=== PATIENT | female | born 1965 | race Caucasian/White ===

== ENCOUNTER 2018-04-06 13:39 | Emergency (ER) | payer BC, OTHER ==
--- NOTE | 2018-04-06 14:16 | ERPHSYRPT ---
- History of Present Illness Time Seen by Provider: 04/06/18 14:16 Source: patient, other ([facility]) Exam Limitations: no limitations Physician History: The patient is a 52-year-old female who has been sent from [facility] to the ER for increased blood pressure. The patient has been having intermittent headaches and visual changes such as stars and wiggly lines for the past 2 months. For the past week her headache has become more constant. She hasn't felt right. She hasn't been able to concentrate she normally does. In August in addition to losartan and hydrochlorothiazide she was given amlodipine to take. She took 2 days of amlodipine and stopped it because it didn't make her feel good. She has not followed up with her doctor for a different antihypertensive. Today she took a half of her pill of amlodipine because she took her blood pressure at home and found it to be high. She also has known hyperthyroidism but is not taking her Tapazole on a regular basis. She denies numbness or tingling. She denies nausea, vomiting, or diarrhea. The headache is a dull ache in the front of her head. Her past medical history significant for hypertension, hyperthyroidism, lupus, and [place]. Timing/Duration: other (2 months) Severity: moderate Modifying Factors: Improves With: nothing Allergies/Adverse Reactions: morphine Allergy (Unknown, Verified 04/06/18 14:17) Home Medications: Bupropion HCl [Bupropion HCl Sr] 150 mg PO DAILY 04/06/18 [History] Leucovorin Calcium 5 mg PO DAILY 04/06/18 [History] Losartan/Hydrochlorothiazide [Losartan-Hctz 100-12.5 mg Tab] 1 each PO DAILY 06/14 [History] Melatonin 10 mg PO HS 04/06/18 [History] Methimazole [Tapazole] 10 mg PO DAILY 04/06/18 [History] Methotrexate Sodium 2.5 mg [Trexall 2.5 mg] 2.5 mg PO DAILY 04/06/18 [ History] [place]-3 Fatty Acids/Fish Oil [Fish Oil 1,000 mg Capsule] 1 each PO DAILY [History] Ranitidine HCl [Zantac 75] 75 mg PO DAILY 04/06/18 [History] - Review of Systems Constitutional: No Fever, No Chills Eyes: Vision Changes (intermittent) Ears, Nose, & Throat: No Symptoms Respiratory: No Cough, No Dyspnea Cardiac: No Chest Pain, No Edema, No Syncope Abdominal/Gastrointestinal: No Abdominal Pain, No Nausea, No Vomiting, No Diarrhea Genitourinary Symptoms: No Dysuria Musculoskeletal: No Back Pain, No Neck Pain Skin: No Rash Neurological: Headache Psychological: No Symptoms Endocrine: No Symptoms Hematologic/Lymphatic: No Symptoms Immunological/Allergic: No Symptoms All Other Systems: Reviewed and Negative - Nursing Vital Signs Nursing Vital Signs: Initial Vital Signs Temperature 98.7 F 04/06/18 14:00 Pulse Rate 89 04/06/18 14:00 Respiratory Rate 18 04/06/18 14:00 Blood Pressure 168/109 04/06/18 14:00 O2 Sat by Pulse Oximetry 98 04/06/18 14:00 Pain Scale Pain Intensity 0 - Physical Exam General Appearance: no apparent distress, alert Eye Exam: PERRL/EOMI, eyes nml inspection Ears, Nose, Throat Exam: normal ENT inspection, TMs normal, pharynx normal, moist mucous membranes Neck Exam: normal inspection, non-tender, supple, full range of motion Respiratory Exam: normal breath sounds, lungs clear, No respiratory distress Cardiovascular Exam: regular rate/rhythm, normal heart sounds, normal peripheral pulses Gastrointestinal/Abdomen Exam: soft, normal bowel sounds, No tenderness, No mass Pelvic Exam: not done Rectal Exam: not done Back Exam: normal inspection, normal range of motion, No CVA tenderness, No vertebral tenderness Extremity Exam: normal inspection, normal range of motion, pelvis stable Neurologic Exam: alert, oriented x 3, cooperative, normal mood/affect, nml cerebellar function, nml station & gait, sensation nml, No motor deficits Skin Exam: normal color, warm, dry, No rash Lymphatic Exam: No adenopathy SpO2 Interpretation: normal Oxygen Delivery: Room Air - Course EKG Interpreted by Me: RATE, Sinus Rhythm, NORMAL AXIS, NORMAL INTERVALS, NORMAL QRS, NORMAL ST-T - Radiology Exams Chest X-ray Interpretation: Reviewed by me, Teleradiologist Report (per Dr Lozano), Negative - CT Exams Head CT Interpretation: Negative, Tele-radiologist Report (per Dr Lozano.), Other ( right sphenoid sinus with moderate mucosal thickening.) Ordered Tests: Active Orders 24 hr Category Date Time Status Clean Catch Urine Specimen STAT Care 04/06/18 14:36 Active EKG-ER Only STAT Care 04/06/18 14:36 Active IV Insertion STAT Care 04/06/18 14:36 Active CHEST 2 VIEWS (PA AND LAT) Stat Exams 04/06/18 14:37 Completed HEAD WITHOUT CONTRAST [CT] Stat Exams 04/06/18 14:38 Completed CBC W DIFF Stat Lab 04/06/18 14:47 Completed CMP Stat Lab 04/06/18 14:47 Completed Lactic Acid Stat Lab 04/06/18 15:40 Completed TROPONIN Q3H Lab 04/06/18 14:47 Completed TROPONIN Q3H Lab 04/06/18 17:45 Ordered TROPONIN Q3H Lab 04/06/18 20:45 Ordered TROPONIN Q3H Lab 04/06/18 23:45 Ordered TROPONIN Q3H Lab 04/07/18 02:45 Ordered TSH [TSH, 3RD Generation] Stat Lab 04/06/18 14:47 Completed UA W/RFX UR CULTURE Stat Lab 04/06/18 14:30 Completed Urine Triage Profile Stat Lab 04/06/18 14:30 Completed Lab/Rad Data: Laboratory Result Diagrams 04/06/18 14:47 04/06/18 14:47 Laboratory Results 04/06/18 04/06/18 04/06/18 Range/Units 15:40 14:47 14:47 WBC (4.0-10.5) K/mm3 RBC (4.1-5.4) M/mm3 Hgb (12.0-16.0) gm/dl Hct (35-47) % MCV (78-100) fl MCH (26-32) pg MCHC (32-36) g/dl RDW (11.5-14.0) % Plt Count (150-450) K/mm3 MPV (6-9.5) fl Gran % (36.0-66.0) % Eos # (Auto) (0-0.5) Absolute Lymphs (auto) (1.0-4.6) Absolute Monos (auto) (0.0-1.3) Lymphocytes % (24.0-44.0) % Monocytes % (0.0-12.0) % Eosinophils % (0.00-5.0) % Basophils % (0.0-0.4) % Absolute Granulocytes (1.4-6.9) Basophils # (0-0.4) Sodium (137-145) mmol/L Potassium (3.5-5.1) mmol/L Chloride (98-107) mmol/L Carbon Dioxide (22-30) mmol/L Anion Gap (5-15) MEQ/L BUN (7-17) mg/dL Creatinine (0.52-1.04) mg/dL Estimated GFR ML/MIN Glucose (74-106) mg/dL Lactic Acid 0.9 (0.4-2.0) Calcium (8.4-10.2) mg/dL Total Bilirubin (0.2-1.3) mg/dL AST (14-36) U/L ALT (0-35) U/L Alkaline Phosphatase (38-126) U/L Troponin I < 0.012 (0.000-0.034) ng/mL Serum Total Protein (6.3-8.2) g/dL Albumin (3.5-5.0) g/dL TSH 3rd Generation 0.438 L (0.47-4.68) mIU/L Ur Collection Type Urine Color (YELLOW) Urine Appearance (CLEAR) Urine pH (5-6) Ur Specific [place] (1.005-1.025) Urine Protein (Negative) Urine Ketones (NEGATIVE) Urine Blood (0-5) Billy/ul Urine Nitrite (NEGATIVE) Urine Bilirubin (NEGATIVE) Urine Urobilinogen (0-1) mg/dL Ur Leukocyte Esterase (NEGATIVE) Urine Culture Reflexed (NO) Urine Glucose (NEGATIVE) mg/dL Urine Opiates Level (NEGATIVE) Ur Methadone (NEGATIVE) Urine Barbiturates (NEGATIVE) Ur Phencyclidine (PCP) (NEGATIVE) Urine Amphetamine (NEGATIVE) U Benzodiazepine Level (NEGATIVE) Urine Cocaine (NEGATIVE) Urine Marijuana (THC) (NEGATIVE) Specimen Received 04/06/18 04/06/18 04/06/18 Range/Units 14:47 14:47 14:30 WBC 4.2 (4.0-10.5) K/mm3 RBC 3.74 L (4.1-5.4) M/mm3 Hgb 12.2 (12.0-16.0) gm/dl Hct 35.4 (35-47) % MCV 94.7 (78-100) fl MCH 32.6 H (26-32) pg MCHC 34.5 (32-36) g/dl RDW 14.5 H (11.5-14.0) % Plt Count 243 (150-450) K/mm3 MPV 10.4 H (6-9.5) fl Gran % 67.3 H (36.0-66.0) % Eos # (Auto) 0.03 (0-0.5) Absolute Lymphs (auto) 0.97 L (1.0-4.6) Absolute Monos (auto) 0.37 (0.0-1.3) Lymphocytes % 23.0 L (24.0-44.0) % Monocytes % 8.8 (0.0-12.0) % Eosinophils % 0.7 (0.00-5.0) % Basophils % 0.2 (0.0-0.4) % Absolute Granulocytes 2.84 (1.4-6.9) Basophils # 0.01 (0-0.4) Sodium 143 (137-145) mmol/L Potassium 3.8 (3.5-5.1) mmol/L Chloride 104 (98-107) mmol/L Carbon Dioxide 29 (22-30) mmol/L Anion Gap 14.5 (5-15) MEQ/L BUN 11 (7-17) mg/dL Creatinine 0.68 (0.52-1.04) mg/dL Estimated GFR > 60.0 ML/MIN Glucose 79 (74-106) mg/dL Lactic Acid (0.4-2.0) Calcium 9.9 (8.4-10.2) mg/dL Total Bilirubin 0.50 (0.2-1.3) mg/dL AST 45 H (14-36) U/L ALT 62 H (0-35) U/L Alkaline Phosphatase 125 (38-126) U/L Troponin I (0.000-0.034) ng/mL Serum Total Protein 9.0 H (6.3-8.2) g/dL Albumin 4.6 (3.5-5.0) g/dL TSH 3rd Generation (0.47-4.68) mIU/L Ur Collection Type Urine Color (YELLOW) Urine Appearance (CLEAR) Urine pH (5-6) Ur Specific [place] (1.005-1.025) Urine Protein (Negative) Urine Ketones (NEGATIVE) Urine Blood (0-5) Billy/ul Urine Nitrite (NEGATIVE) Urine Bilirubin (NEGATIVE) Urine Urobilinogen (0-1) mg/dL Ur Leukocyte Esterase (NEGATIVE) Urine Culture Reflexed (NO) Urine Glucose (NEGATIVE) mg/dL Urine Opiates Level NEGATIVE (NEGATIVE) Ur Methadone NEGATIVE (NEGATIVE) Urine Barbiturates NEGATIVE (NEGATIVE) Ur Phencyclidine (PCP) NEGATIVE (NEGATIVE) Urine Amphetamine NEGATIVE (NEGATIVE) U Benzodiazepine Level NEGATIVE (NEGATIVE) Urine Cocaine NEGATIVE (NEGATIVE) Urine Marijuana (THC) NEGATIVE (NEGATIVE) Specimen Received 04/06/18 Range/Units 14:30 WBC (4.0-10.5) K/mm3 RBC (4.1-5.4) M/mm3 Hgb (12.0-16.0) gm/dl Hct (35-47) % MCV (78-100) fl MCH (26-32) pg MCHC (32-36) g/dl RDW (11.5-14.0) % Plt Count (150-450) K/mm3 MPV (6-9.5) fl Gran % (36.0-66.0) % Eos # (Auto) (0-0.5) Absolute Lymphs (auto) (1.0-4.6) Absolute Monos (auto) (0.0-1.3) Lymphocytes % (24.0-44.0) % Monocytes % (0.0-12.0) % Eosinophils % (0.00-5.0) % Basophils % (0.0-0.4) % Absolute Granulocytes (1.4-6.9) Basophils # (0-0.4) Sodium (137-145) mmol/L Potassium (3.5-5.1) mmol/L Chloride (98-107) mmol/L Carbon Dioxide (22-30) mmol/L Anion Gap (5-15) MEQ/L BUN (7-17) mg/dL Creatinine (0.52-1.04) mg/dL Estimated GFR ML/MIN Glucose (74-106) mg/dL Lactic Acid (0.4-2.0) Calcium (8.4-10.2) mg/dL Total Bilirubin (0.2-1.3) mg/dL AST (14-36) U/L ALT (0-35) U/L Alkaline Phosphatase (38-126) U/L Troponin I (0.000-0.034) ng/mL Serum Total Protein (6.3-8.2) g/dL Albumin (3.5-5.0) g/dL TSH 3rd Generation (0.47-4.68) mIU/L Ur Collection Type CLEAR Urine Color YELLOW (YELLOW) Urine Appearance CLEAR (CLEAR) Urine pH 7.0 (5-6) Ur Specific [place] 1.005 (1.005-1.025) Urine Protein NEGATIVE (Negative) Urine Ketones NEGATIVE (NEGATIVE) Urine Blood NEGATIVE (0-5) Billy/ul Urine Nitrite NEGATIVE (NEGATIVE) Urine Bilirubin NEGATIVE (NEGATIVE) Urine Urobilinogen NORMAL (0-1) mg/dL Ur Leukocyte Esterase NEGATIVE (NEGATIVE) Urine Culture Reflexed NO (NO) Urine Glucose NEGATIVE (NEGATIVE) mg/dL Urine Opiates Level (NEGATIVE) Ur Methadone (NEGATIVE) Urine Barbiturates (NEGATIVE) Ur Phencyclidine (PCP) (NEGATIVE) Urine Amphetamine (NEGATIVE) U Benzodiazepine Level (NEGATIVE) Urine Cocaine (NEGATIVE) Urine Marijuana (THC) (NEGATIVE) Specimen Received 04-06-18 1510 - Progress Progress: improved (malnourished) Counseled pt/family regarding: lab results, diagnosis, need for follow-up, rad results - Departure Time of Disposition: 15:57 (he 1) Departure Disposition: Home Clinical Impression: Sinusitis, Hyperthyroidism Condition: Stable Critical Care Time: No Referrals: LAMBERT PATTON [Primary Care Provider] - Additional Instructions: The high blood pressure has been affected by sinusitis and hypothyroidism. Take Augmentin 875 twice a day for 10 days. You have also been given Diflucan 150 mg for possible yeast infection. Begin taking the Tapazole as directed for your hyperthyroidism. Follow-up with your primary medical doctor in about one week. Prescriptions: Amoxicillin/Potassium Clav [Augmentin 875-125 Tablet] 875 mg PO BID #20 tablet Fluconazole [Diflucan] 150 mg PO DAILY #1 tablet
[2018-04-06 14:51] LABS: BASOPHIL % 0.2 % (0.0-0.4); Basophil (Absolute #) 0.01 (0-0.4); Eosinophil % 0.7 % (0.00-5.0); Eosinophil (Absolute #) 0.03 (0-0.5); Granulocyte Absolute (ANC) 2.84 (1.4-6.9); Granulocytes % 67.3 % (36.0-66.0); Hematocrit 35.4 % (35-47); Hemoglobin 12.2 gm/dl (12.0-16.0); Lymphocyte (Absolute #) 0.97 (1.0-4.6); Mean Cell Volume 94.7 fl (78-100); Mean Corpuscular Hemoglobin 32.6 pg (26-32); Mean Corpuscular Hgb Concent. 34.5 g/dl (32-36); Mean Platelet Volume 10.4 fl (6-9.5); Monocyte (Absolute #) 0.37 (0.0-1.3); Monocytes % 8.8 % (0.0-12.0); Platelet Count 243 K/mm3 (150-450); Red Blood Count 3.74 M/mm3 (4.1-5.4); Red Cell Distribution Width 14.5 % (11.5-14.0); White Blood Count 4.2 K/mm3 (4.0-10.5)
[2018-04-06 15:04] LABS: ALBUMIN 4.6 g/dL (3.5-5.0); ALKALINE PHOSPHATASE 125 U/L (38-126); ANION GAP 14.5 MEQ/L (5-15); BLOOD UREA NITROGEN 11 mg/dL (7-17); CHLORIDE 104 mmol/L (98-107); Calcium 9.9 mg/dL (8.4-10.2); Carbon Dioxide 29 mmol/L (22-30); Creatinine 1 0.68 mg/dL (0.52-1.04); Glucose 79 mg/dL (74-106); Potassium 3.8 mmol/L (3.5-5.1); SGOT/AST 45 U/L (14-36); SGPT/ALT 62 U/L (0-35); SODIUM 143 mmol/L (137-145)
[2018-04-06 15:17] LABS: Appearance CLEAR (CLEAR); Bilirubin NEGATIVE (NEGATIVE); Blood NEGATIVE Ery/ul (0-5); Glucose NEGATIVE (NEGATIVE); Ketones NEGATIVE (NEGATIVE); Leukocyte Esterase NEGATIVE (NEGATIVE); Nitrite NEGATIVE (NEGATIVE); Protein,Urine Dip NEGATIVE (Negative); Specific Gravity 1.005 (1.005-1.025); Urobilinogen NORMAL mg/dL (0-1)
[2018-04-06 15:29] LABS: Amphetamine,Urine NEGATIVE (NEGATIVE); Barbiturate,Urine NEGATIVE (NEGATIVE); Benzodiazepine,Urine NEGATIVE (NEGATIVE); Cocaine,Urine NEGATIVE (NEGATIVE); Methadone,Urine NEGATIVE (NEGATIVE); Opiate,Urine NEGATIVE (NEGATIVE); PCP,Urine NEGATIVE (NEGATIVE); THC,Urine NEGATIVE (NEGATIVE)
--- NOTE | 2018-04-06 15:30 | XRAY ---
Indication: Left-sided headache. Light sensitivity. Multiple contiguous axial images obtained through the head without contrast. Comparison: None Normal appearing brain parenchyma, ventricles, and bony calvarium. Right sphenoid sinus demonstrates moderate mucosal thickening. Remaining visualized paranasal sinuses and mastoid air cells are clear. Impression: Right sphenoid sinus disease in a otherwise normal CT head without contrast exam. CT DI 70.00
--- NOTE | 2018-04-06 15:34 | XRAY ---
Indication: Hypertension. Comparison: None PA/lateral chest demonstrates normal heart and lungs with a few incidental calcified granulomas. Bony thorax intact.
[2018-04-06 16:15] VITALS: BP 147/101; PULSE 85; O2SAT 96
== END 2018-04-06 16:15 | disposition home or self-care (01) ==
LOC: ED 13:39
DX: J32.9 Chronic sinusitis, unspecified (principal); E05.90 Thyrotoxicosis, unspecified without thyrotoxic crisis or storm; R51 Headache; I10 Essential (primary) hypertension; Z79.899 Other long term (current) drug therapy
CPT/HCPCS: 36000; 36415; 70450; 71046; 80053; 80307; 81002; 83605; 84443; 84484; 85025; 93005; 99284